=== PATIENT | female | born 1960 | race Caucasian/White ===

== ENCOUNTER 2022-07-16 01:45 | Day surgery (SDC) | payer OTHER, SELFPAY ==
[2022-07-05 10:10] VITALS: BMI 31.6
--- NOTE | 2022-07-05 10:16 | PC.NURSE ---
Report to the Outpatient Waiting Room, entrance under the green pavilion located off [facility], at time 0845 on date 07/16/22. Planned Procedure Time: 1045. Time changes happen often and if your time is changed the preop area will call you the afternoon before. - You and your visitor will be asked to self-screen and do not enter if you have any COVID symptoms. - Only one visitor is requested with a max of two and NO children visitors are allowed at this time. - The patient visitor may be requested to leave or wait in car when not with patient due to distancing restrictions. - A mask is optional within the hospital at this time. Patients may have clear liquids (water, carbonated beverages, clear teas, apple juice) until 3 hours prior to surgery with a maximum of 20 ounces. - No food from midnight until time of surgery Take the following medications with a SIP of water the morning of surgery: AMLODIPINE DO NOT STOP ANY OF YOUR OTHER PRESCRIPTION MEDICATIONS PRIOR TO SURGERY EXCEPT THE FOLLOWING Medications to discontinue per physician: VITAMINS/SUPPLEMENTS Date to take last dose: 07/12/22 [address] AND [address]LE[address] FAJARDO'S INSTRUCTIONS Please no make-up, nail faroese, hairspray, perfume, deodorant, or body powder the day of surgery. No jewelry (including any body piercings) or valuables the day of surgery, leave them at home. Please take a shower or bath the night before, or the morning of, surgery with an antibacterial soap. Wear comfortable, loose fitting clothing. - Jewelry must be removed prior to entering the operating room. Rings and piercings that are not removed may be cut off. - The hospital will not accept responsibility for valuables. - Please leave all valuables, including medications, at home the day of surgery. If you are going home after surgery, a licensed xm1 tank driver must drive you home. - NO public transportation without another adult if you receive anesthesia. - We recommend that an adult stay with you for 24 hours following discharge. - We also recommend that you do not drive, make important decision, drink alcoholic beverages, or take any drugs that were not prescribed by your health care provider for at least 24 hours after your discharge time. Follow any additional instructions given to you from your surgeon. If you or anyone in your household have experienced Covid symptoms in the past week, please notify your surgeon or the nurse liaison at the phone number below for possible testing. Telephone instructions given to MCKAYLA - CHRISTIANO WREN and asked if any additional questions and then verbalized understanding. Patient advised to call surgeon office or pre surgery nurse liaison [phone] if any additional questions.
--- NOTE | 2022-07-15 10:25 | PM.IMHP ---
H&P: HPI History of Present Illness Date/Time: 07/15/22 10:25 Chief Complaint: stress incontinence Narrative: 62-year-old with mixed incontinence. She is on medications for overactive bladder. She see presenting for surgical options for stress incontinence Review of Systems Review of Systems: ROS unobtainable: Yes unobtainable due to endotracheal tube PMFSH Social History Social History Smoking status: Never smoker Alcohol intake: current Alcohol use details: 2/MONTH Substance use: never Substance use type: does not use Living arrangements: with family Spiritual care concerns: No Meds Home Medications and Allergies Home Medications Medication Instructions Recorded Confirmed Type amlodipine 5 mg tablet 5 mg PO DAILY 07/05/22 07/05/22 History aspirin 81 mg chewable tablet 81 mg PO HS 07/05/22 07/05/22 History celecoxib 200 mg capsule (Celebrex) 200 mg PO HS 07/05/22 07/05/22 History cyclobenzaprine 5 mg tablet 5 mg PO HS 07/05/22 07/05/22 History hydrochlorothiazide 12.5 mg tablet 12.5 mg PO DAILY 07/05/22 07/05/22 History magnesium 250 mg tablet 250 mg PO DAILY 07/05/22 07/05/22 History oxybutynin chloride 10 mg 10 mg PO HS 07/05/22 07/05/22 History tablet,extended release 24 hr pantoprazole 40 mg tablet,delayed 40 mg PO QAM 07/05/22 07/05/22 History release potassium 99 mg tablet 99 mg PO DAILY 07/05/22 07/05/22 History Allergies Allergy/AdvReac Type Severity Reaction Status Date / Time meperidine AdvReac Unknown Nausea and Verified 07/05/22 10:06 Vomiting Exam Narrative: urethral hypermobility noted Assessment and Plan Assessment and plan (1) ALLY (stress urinary incontinence, female): Code(s): N39.3 - Stress incontinence (female) (male) Status: Acute Assessment and Plan: urethral sling. Understands risks of bleeding, infection, damage to urinary tract, lack of efficacy, persistent or recurrent stress incontinence, need for ancillary procedures, urinary retention, mesh exposure. She agrees to proceed
--- NOTE | 2022-07-16 07:12 | WPDHPUPDATE1 ---
History and Physical Update Update Date/Time: 07/16/22 07:12 History and Physical has been reviewed, including an updated exam of the patient. There are NO changes in the patient's condition. Risks, benefits, and alternatives have been discussed and questions answered. Patient agrees to proceed with procedure.
[2022-07-16 08:20] VITALS: BP 132/86; PULSE 97; RESP 14; TEMP 36.9; O2SAT 100
--- NOTE | 2022-07-16 08:37 | WPDANESEPPF ---
Anes - Initial Pre Proc Eval Procedure: Operation Date: 07/16/22 09:00 Proposed Procedures p Urethral Sling - Jean-Paul Prado MD Date/Time: 07/16/22 08:37 Surgeon: Jean-Paul Prado MD Pre Op Diagnosis: stress incont Patient Data Age: 62 Gender: F Height: 1.65 m Weight: 90.2 kg Last Vital Signs Temp 36.9 C 07/16/22 08:20 Pulse 97 07/16/22 08:20 Resp 14 07/16/22 08:20 BP 132/86 07/16/22 08:20 Pulse Ox 100 07/16/22 08:20 O2 Del Method Room Air 07/16/22 08:20 Allergies Allergy/AdvReac Type Severity Reaction Status Date / Time meperidine AdvReac Unknown Nausea and Verified 07/16/22 08:24 Vomiting Home Medications Medication Instructions Recorded Confirmed Type amlodipine 5 mg tablet 5 mg PO DAILY 07/05/22 07/05/22 History aspirin 81 mg chewable tablet 81 mg PO HS 07/05/22 07/05/22 History celecoxib 200 mg capsule (Celebrex) 200 mg PO HS 07/05/22 07/05/22 History cyclobenzaprine 5 mg tablet 5 mg PO HS 07/05/22 07/05/22 History hydrochlorothiazide 12.5 mg tablet 12.5 mg PO DAILY 07/05/22 07/05/22 History magnesium 250 mg tablet 250 mg PO DAILY 07/05/22 07/05/22 History oxybutynin chloride 10 mg 10 mg PO HS 07/05/22 07/05/22 History tablet,extended release 24 hr pantoprazole 40 mg tablet,delayed 40 mg PO QAM 07/05/22 07/05/22 History release potassium 99 mg tablet 99 mg PO DAILY 07/05/22 07/05/22 History Patient hx anesthesia problems: none Family hx anesthesia problems: none Results Review: All pre-operative results and documents have been reviewed as part of the pre-operative evaluation. [facility] Past Medical History Medical History (Updated 07/16/22 @ 08:38 by Zechariah Faria MD) HTN (hypertension) Obesity Surgical History Surgical History (Updated 07/16/22 @ 08:39 by Zechariah Faria MD) H/O laparoscopy History of mastectomy History of total knee arthroplasty Social History Social History Smoking status: Never smoker Alcohol intake: current Alcohol use details: 2/MONTH Substance use: never Substance use type: does not use Living arrangements: with family Spiritual care concerns: No Anes - Eval Final PreProcedure Day of Procedure 07/16/22 08:37 Patient weight: obese Heart: regular rate and rhythm Lungs: clear to auscultation Airway: Mallampati scale class II Neurological: alert and oriented Last oral intake: >/= 8 hours ASA classification: II Emergent: no Anesthetic plan: proceed Results Review: All pre-operative results and documents have been reviewed as part of the pre-operative evaluation. Informed Consent: The patient's anesthetic plan and its attendant risks and benefits were discussed with the patient/family/POA. Questions were solicited and answers provided to the satisfaction of the patient/family/POA.
[2022-07-16] MEDS: SCOPOLAMINE 1.5 MG PATCH TRANSDERM (08:45)
[2022-07-16] MEDS: ceFAZolin 2 GM/D5W 50 ML 2 GM/50 ML BAG IVPB (09:07)
[2022-07-16] MEDS: BUPIVACAINE/EPINEPHRINE 0.5% 10 ML VIAL INFILTRATE (09:20)
[2022-07-16 09:37] VITALS: BP 108/59; PULSE 96; RESP 12; O2SAT 100
[2022-07-16] MEDS: LACTATED RINGERS 1,000 ML 30 ML IV CONT (09:37)
[2022-07-16 10:00] VITALS: BP 103/66; PULSE 92; RESP 14; O2SAT 98
[2022-07-16 10:30] VITALS: BP 99/65; PULSE 76; RESP 14
--- NOTE | 2022-07-19 10:24 | W.PM.PROC2 ---
Procedure Note - Detailed Date of Procedure 07/16/22 Pre-op Diagnosis stress incont Post-op Diagnosis Same Procedure Performed mid urethral sling cystoscopy Surgeon Jean-Paul Prado MD Anesthesia MAC Indications This is a female with confirm stress urinary incontinence. She desires surgical correction. She understands the risks of bleeding, infection, injury to the urinary tract, vaginal mesh extrusion, urinary tract mesh erosion, obstructive voiding requiring a secondary procedure, hip and leg pain, dyspareunia, inability to improve overactive bladder symptoms. She agrees to proceed. Description of Procedure She was correctly identified. Informed consent obtained. She was brought the operating room. She was given appropriate anesthesia. She was given appropriate perioperative antibiotics. A time-out performed. Atrophic vaginal changes were noted. Otherwise there was no prolapse. Urethral hypermobility was documented. I marked out the site of the inner thigh incisions. I anesthetized the skin and made those incisions. I anesthetized the anterior vaginal wall over the mid urethra. I made a 1 cm incision. I dissected out laterally taking great care not to injure the refilled vaginal wall. I passed the helical trocars. First on the left. Then on the right. I did this from the thigh incision towards the vaginal incision. The sling was connected to the trocars and brought out through the thigh incision. I tensioned the sling appropriately. I cut and the plastic sheaths. I then closed the incision with 2 0 Vicryl. On cystoscopy there is no tumors or surgical artifact. There was no surgical artifact in the urethra. I cut the excess sling material. Close incisions with glue. She was awakened and transferred to the PACU in stable condition. Implants Urethral sling Estimated Blood Loss 20 Drains No Packing No Pathology None sent Complications No immediate complications Condition Stable Disposition PACU
== END 2022-07-16 10:46 | disposition home or self-care (01) ==
PROVIDERS: Visit Provider Urology
PROC: (CPT 57288; principal; 2022-07-16 09:00)
DX: N39.3 Stress incontinence (female) (male) (principal); I10 Essential (primary) hypertension; E66.9 Obesity, unspecified; Z68.33 Body mass index [BMI] 33.0-33.9, adult; Z79.82 Long term (current) use of aspirin
CPT/HCPCS: 57288; A9270; C1771; J0690; J2250; J2704; J3010; J7030; J7120